=== PATIENT | male | born 1995 | race African-American/Black ===

== ENCOUNTER 2016-07-09 10:58 | Emergency (ER) | payer BC | END 2016-07-09 11:00 | disposition home or self-care (01) | LOC: ER 10:58 | DX: N48.5 Ulcer of penis (principal); Z91.010 Allergy to peanuts | CPT/HCPCS: 99283; J0561 ==

== ENCOUNTER 2016-09-04 02:00 | Emergency (ER) | payer BC ==
[2016-09-04 02:03] LABS: ASCORBIC ACID (UR NOT ORDER) NEG (NEG); BILIRUBIN, URINE NEGATIVE (NEG); ER URINALYSIS TAT 0 Hrs 00 Mins; KETONE, URINE NEGATIVE (NEG); LEUKOCYTE ESTERASE(NOT OR NEG (NEG); NITRITE (URINE) NEG (NEG); WBC (NOT ORDERED) (RFLEX) 2 (0-5)
[2016-09-04 04:47] LABS: CHLAMYDIA TRACH PCR NOT DETECTED (NOT DETEC); GC PCR NOT DETECTED (NOT DETECT); SOURCE: MALE URINE
== END 2016-09-04 02:37 | disposition home or self-care (01) ==
LOC: ER 02:00
PROVIDERS: Emergency Medicine
DX: N48.5 Ulcer of penis (principal); Z91.010 Allergy to peanuts
CPT/HCPCS: 81001; 86592; 87491; 87591; 99283; A9270-GY